=== PATIENT | male | born 1950 | race Caucasian/White ===

== ENCOUNTER 2020-07-20 07:53 | Outpatient (CLI) | payer MEDICARE, SELFPAY ==
--- NOTE | ~2020-07-20 | XR_ITS ---
EXAMINATION: XR shoulder LT min 2V DATE: 07/20/2020 08:23 INDICATION: Left shoulder pain. TECHNIQUE: 5 views of left shoulder were obtained. COMPARISON: None. FINDINGS: Bone alignment is normal. No fracture. There is mild osteoarthritis of glenohumeral joint a nd severe osteoarthritis of acromioclavicular joint. IMPRESSION: 1. Polyarticular osteoarthritis. Reviewed, dictated and finalized at location B. [employer]
== END 2020-07-20 07:54 | disposition home or self-care (01) ==
PROVIDERS: PCP Family Medicine; Visit Provider Orthopaedic Surgery
DX: M25.512 Pain in left shoulder (principal)
CPT/HCPCS: 73030

== ENCOUNTER → 2020-07-31 07:27 | Outpatient (CLI) | payer MEDICARE, SELFPAY ==
--- NOTE | ~2020-07-31 | MR_ITS ---
EXAMINATION: MR shoulder LT wo con DATE: 07/31/2020 08:39 INDICATION: Left shoulder joint disorder presenting with left scapular pain radiating into the left a rm. TECHNIQUE: Magnetic resonance imaging (MRI) of the left shoulder was performed without intravenous co ntrast. Sequences included axial PD-weighted FS FSE, coronal oblique PD-weighted FS FSE, coronal obli que T2-weighted FS FSE, sagittal PD-weighted FS FSE, and sagittal T1-weighted SE. COMPARISON: None. FINDINGS: Coracoacromial arch: The acromion undersurface is curved in morphology (type II). The coracoacromial ligament is normal. M ild to moderate acromioclavicular osteoarthritis. Rotator cuff: Moderate supraspinatus, infraspinatus and subscapularis tendinopathy. Small partial-thickness intrasu bstance tear along the superior facet footplate of the supraspinatus tendon measuring approximately 5 mm AP and involving approximately one third of the tendon thickness. The teres minor tendon is mary beth l. Normal rotator cuff muscle bulk and signal. Biceps tendon, glenoid labrum and glenohumeral cartilage: Moderate tendinopathy of the intra-articular long head biceps tendon without discrete tear. Glenoid l abrum is normal with a normal small anterosuperior sublingual foramen contiguous with a smooth medial ly curving sublabral sulcus which extends posteriorly to the 12:00 position of the glenoid. Partial- thickness cartilage loss along the humeral head with smooth chondral surface and without degenerative subchondral changes. Fluid: Physiologic amount of fluid in the glenohumeral joint and biceps tendon sheath. No loose osteochondra l bodies. Small amount of fluid in the subacromial/subdeltoid bursa consistent with mild bursitis. Bones/other: There is cystic change and mild adjacent marrow edema along the middle facet of the greater tuberosit y likely related to chronic rotator cuff disease. Otherwise normal marrow signal is otherwise normal with no fracture or pathologic marrow replacing process. The marker indicating the site of maximal pa in is positioned between the medial margin of the left scapula and the spine. The underlying musculat ure is unremarkable. IMPRESSION: 1. Moderate rotator cuff tendinopathy with small mild partial-thickness intrasubstance tear at the di stal supraspinatus tendon. 2. Moderate tendinopathy without discrete tear of the intra-articular long head biceps tendon. 3. Mild to moderate acromial clavicular osteoarthritis and minimal glenohumeral osteoarthritis. 4. Mild subacromial/subdeltoid bursitis. Reviewed, dictated and finalized at [facility]. [employer] IMPRESSION: 1. Moderate rotator cuff tendinopathy with small mild partial-thickness intrasu bstance tear at the distal supraspinatus tendon. 2. Moderate tendinopathy without discrete tear of the intra-articular long head biceps tendon. 3. Mild to moderate acromial clavicular osteoarthritis and minimal glenohumeral osteoarthritis. 4. Mild subacromial/subdeltoid bursitis.
== END ==
PROVIDERS: Visit Provider Orthopaedic Surgery
DX: M75.112 Incomplete rotator cuff tear or rupture of left shoulder, not specified as traumatic (principal); M19.012 Primary osteoarthritis, left shoulder; M75.52 Bursitis of left shoulder
CPT/HCPCS: 73221

== ENCOUNTER 2021-12-06 08:35 | Outpatient (CLI) | payer MEDICARE, SELFPAY ==
--- NOTE | ~2021-12-06 | XR_ITS ---
EXAMINATION: XR shoulder RT min 2V DATE: 12/06/2021 09:07 INDICATION: Right shoulder pain. TECHNIQUE: 4 views of right shoulder were obtained. COMPARISON: None. FINDINGS: Bone alignment is normal. No fracture. There is mild osteoarthritis of glenohumeral joint a nd severe osteoarthritis of acromioclavicular joint. There is a right internal jugular port with tip in superior vena cava. There is an old healed fracture of right fourth rib. IMPRESSION: 1. Polyarticular osteoarthritis. Reviewed, dictated and finalized at location A.
== END 2021-12-06 08:36 | disposition home or self-care (01) ==
LOC: CHSIMG 08:39
PROVIDERS: PCP Family Medicine; Visit Provider Orthopaedic Surgery
DX: M25.511 Pain in right shoulder (principal)
CPT/HCPCS: 73030